=== PATIENT | male | born 1990 | race Caucasian/White ===

== ENCOUNTER 2017-01-13 21:01 | Emergency (ER) | payer SELFPAY ==
[~2017-01-13 21:01] MED LIST: ALEVE220 M3 PO; BACTRIM DS TAB1 EAC2 PO; CELEXA20 M2 PO; CITALOPRAM HBR10 M1 PO; DEPAKOTE250 M1 PO; DIVALPROEX SOD250 M2 PO; NO MEDS
[2017-01-13] MEDS ORDERED: AMOXICILLIN875 M1 PO (22:32)
== END 2017-01-13 23:05 ==
LOC: EDMED 21:01
DX: H66.92 Otitis media, unspecified, left ear (principal)

== ENCOUNTER 2017-05-22 21:32 | Emergency (ER) | payer SELFPAY ==
[~2017-05-22] VITALS: Ht 172.7 cm; Wt 150.0 kg
[~2017-05-22 21:32] MED LIST changes: +AMOXICILLIN875 M1 PO
[2017-05-22 22:35] LABS: BASO ABSOLUTE COUNT 0.1 tho/cmm (0.0-0.2); EOS % 3.9 % (0-7); EOSINOPHIL ABSOLUTE COUNT 0.3 tho/cmm (0.0-0.7); HCT-HEMATOCRIT 41.9 % (36.0-53.5); HGB-HEMOGLOBIN 14.7 gm/dl (13.5-17.0); IMMATURE GRANULOCYTES ABSOLUTE 0.02 tho/cmm (0-0.03); IMMATURE GRANULOCYTES PERCENT 0.3 % (0-0.3); LYMPH % 40.5 % (20-45); LYMPH ABSOLUTE COUNT 2.9 tho/cmm (0.8-4.5); MCH (MEAN CORPUSCULAR HGB) 29.9 pg (28.0-32.0); MCHC MEAN CORPUSCULAR HGB CONC 35.1 % (32.0-36.0); MCV (MEAN CELL VOLUME) 85.2 fl (82.0-96.0); MEAN PLATELET VOLUME 10.4 cmc (9.4-12.4); MONO % 9.9 % (0-12); MONOCYTE ABSOLUTE COUNT 0.7 tho/cmm (0.0-1.2); NEUTROPHIL ABSOLUTE COUNT 3.2 tho/cmm (1.6-8.0); NEUTROPHIL-AUTOMATED 3.2 tho/cmm (1.6-8.0); NEUTROPHILS % 44.4 % (40-80); PLATELET COUNT 204 tho/cmm (150-450); RED BLOOD COUNT 4.92 mil/cmm (4.40-5.70); RED CELL DISTRIBUTION WIDTH 13.7 % (12.4-16.4); WHITE BLOOD COUNT 7.2 tho/cmm (4.0-10.0)
[2017-05-22 22:38] LABS: URINE APPEARANCE CLEAR; URINE BILIRUBIN NEGATIVE (NEG); URINE BLOOD NEGATIVE (NEG); URINE COLOR YELLOW; URINE GLUCOSE (UA) NEGATIVE (NEG); URINE KETONE NEGATIVE (NEG); URINE LEUKOCYTE ESTERASE NEGATIVE (NEG); URINE NITRITE NEGATIVE (NEG); URINE PROTEIN SMALL (NEG); URINE SPECIFIC GRAVITY 1.005 (1.003-1.030)
[2017-05-22 22:45] LABS: URINE EPITHELIAL CELLS RARE /[HPF] (0-10); URINE RBC 0 /[HPF] (0-5); URINE WBC 0 /[HPF] (0-5)
[2017-05-22 22:51] LABS: ALBUMIN 3.8 g/dl (3.5-5.0); ALKALINE PHOSPHATASE 70 U/L (33-138); BILIRUBIN,TOTAL 0.5 mg/dl (0.0-1.5); BLOOD UREA NITROGEN 16 mg/dl (6-24); CALCIUM 8.7 mg/dl (8.5-10.5); CARBON DIOXIDE-VENOUS 25 mmol/L (22-32); CHLORIDE 109 mmol/l (96-110); CREATININE 0.88 mg/dl (0.60-1.30); GLUCOSE 105 mg/dL (70-110); LIPASE 231 U/L (73-393); SODIUM 142 mmol/L (135-145); eGFR VALUE FOR BLACK >90 mL/Min
[2017-05-22 22:55] LABS: ALT/SGPT 120 U/L (12-78)
[2017-05-22 23:04] LABS: ANION GAP 12 mmol/L (0-20); AST/SGOT 53 U/L (10-40); POTASSIUM 4.2 mmol/L (3.7-5.1)
[2017-05-23] MEDS ORDERED: NO HOME MEDICATION (16:01)
[2017-05-23] MEDS ORDERED: PERCOCET 5-3251 EACH PO (17:35)
[2017-05-23] MEDS ORDERED: ZOFRAN ODT4 MG PO (17:35)
== END 2017-05-23 00:11 ==
LOC: EDMED 21:32
PROVIDERS: Emergency Medicine
PROC: BW21ZZZ Computerized Tomography (CT Scan) of Abdomen and Pelvis (ICD-10-PCS; principal; 2017-05-22)
DX: K80.80 Other cholelithiasis without obstruction (principal); R19.7 Diarrhea, unspecified; E66.9 Obesity, unspecified; F17.290 Nicotine dependence, other tobacco product, uncomplicated
CPT/HCPCS: J1885; J2405; J7030; Q9967